=== PATIENT | female | born 1990 | race African-American/Black ===

== ENCOUNTER 2019-06-15 19:11 | Emergency (ER) | payer BC, SELFPAY | END 2019-06-15 19:46 | disposition home or self-care (01) | LOC: NAV ERS 19:11 | DX: T18.0XXA Foreign body in mouth, initial encounter (principal); F17.210 Nicotine dependence, cigarettes, uncomplicated | CPT/HCPCS: 99283 ==

== ENCOUNTER 2020-03-19 23:18 | Emergency (ER) | payer BC, OTHER ==
[2020-03-19 23:45] LABS: #Basophils 0.1 thou/uL (0.0-0.2); #Eosinphils 0.1 thou/uL (0.0-0.7); #Lymphocytes 2.9 thou/uL (1.20-3.40); #Monocytes 0.6 thou/uL (0.11-0.59); #Neutrophils 4.1 thou/uL (1.40-6.50); %Basophils 0.9 % (0.0-1.0); %Eosinophils 1.9 % (0.0-10.0); %Lymphocytes 37.4 % (21.0-51.0); %Monocytes 7.3 % (0.0-10.0); %Neutrophils 52.4 % (42.0-75.0); Hemoglobin 10.8 g/dL (12.0-16.0); Mean Corpuscular HGB CONC 30.6 g/dL (32.0-36.0); Mean Corpuscular Hemoglobin 29.2 pg (27.0-31.0); Mean Corpuscular Volume 95.4 fL (78.0-98.0); Mean Platelet Volume 7.8 fL (7.4-10.4); Platelet Count 248 thou/uL (130-400); RBC Distribution Width 12.4 % (11.5-14.5); Red Blood Cell (RBC) Count 3.71 mill/uL (4.20-5.40); White Blood Cell (WBC) Count 7.8 thou/uL (4.8-10.8)
--- NOTE | 2020-03-19 23:55 | RAD ---
Chest one view HISTORY: Chest pain. Dyspnea. FINDINGS: Cardiac silhouette and pulmonary vasculature are unremarkable. Mediastinum is midline. No confluent airspace consolidation or evidence of pneumothorax. IMPRESSION : No active cardiopulmonary abnormalities are demonstrated.
[2020-03-20 00:07] LABS: ALT (SGPT) 18 U/L (8-55); AST (SGOT) 14 U/L (5-34); Albumin 4.2 g/dL (3.5-5.0); Alkaline Phosphatase 61 U/L (40-110); Anion Gap 16 mmol/L (10-20); BUN (Urea Nitrogen) 13 mg/dL (7.0-18.7); Bilirubin, Total 0.2 mg/dL (0.2-1.2); Calc. Creatinine Clearance 0 mL/min (70-130); Calcium 9.1 mg/dL (7.8-10.44); Carbon Dioxide 20 mmol/L (22-29); Chloride 105 mmol/L (98-107); Estimated GFR-MDRD Greater than 90; Globulin 3.7 g/dL (2.4-3.5); Glucose 109 mg/dL (70-105); Protein, Total 7.9 g/dL (6.0-8.3); Sodium 137 mmol/L (136-145)
[2020-03-20] MEDS ORDERED: Ketorolac Tromethamine 30 MG/ML VIAL ONE (00:22)
== END 2020-03-20 00:40 | disposition home or self-care (01) ==
LOC: NAV ERS 23:18
DX: M94.0 Chondrocostal junction syndrome [Tietze] (principal); F17.210 Nicotine dependence, cigarettes, uncomplicated
CPT/HCPCS: 71045; 80053; 84484; 85025; 93005; 96374; J1885

== ENCOUNTER 2020-08-24 04:10 | Emergency (ER) | payer BC, OTHER ==
[2020-08-24] MEDS ORDERED: Amoxicillin/Potassium Clav 875 MG TAB ONE (04:48)
[2020-08-24] MEDS ORDERED: Acetaminophen 325 MG TAB ONE (04:48)
[2020-08-24] MEDS ORDERED: Ibuprofen 200 MG TAB ONE (04:48)
== END 2020-08-24 04:55 | disposition home or self-care (01) ==
LOC: NAV ERS 04:10
DX: K08.89 Other specified disorders of teeth and supporting structures (principal); F17.210 Nicotine dependence, cigarettes, uncomplicated
CPT/HCPCS: 99282

== ENCOUNTER 2022-02-28 18:56 | Emergency (ER) | payer OTHER ==
[2022-02-28] MEDS ORDERED: Lidocaine 1% 20 ML MDV ONE (19:36)
[2022-02-28] MEDS ORDERED: Sulfameth/Trimethoprim DS 800-160mg TAB ONE (20:00)
== END 2022-02-28 20:07 | disposition home or self-care (01) ==
LOC: NAV ERS 18:56
DX: L72.3 Sebaceous cyst (principal); F17.210 Nicotine dependence, cigarettes, uncomplicated
CPT/HCPCS: 10060; 87070; 87077; 87186; 87205